=== PATIENT | female | born 1980 | race African-American/Black ===

== ENCOUNTER 2025-05-10 06:17 | Inpatient (IN) | payer OTHER ==
[2025-05-03 14:29] VITALS: BMI 26.6
[2025-05-10] MEDS: PHENAZOPYRIDINE HCL 100 MG TABLET (FP) PO ONE (06:34)
[2025-05-10] MEDS ORDERED: MIDAZOLAM HCL 2 MG/2 ML SINGLE DOSE VIAL ONE ×2 (07:37→10:21)
[2025-05-10] MEDS ORDERED: PROPOFOL 20 ML ONE ×2 (07:37→08:27)
[2025-05-10] MEDS ORDERED: ONDANSETRON 4 MG/2 ML VIAL ONE ×2 (07:40→10:00)
[2025-05-10] MEDS ORDERED: TRANEXAMIC ACID 1000 MG/10 ML VIAL ONE ×2 (07:50→10:23)
[2025-05-10] MEDS ORDERED: DEXAMETHASONE SOD PHOSPHATE 4 MG/1 ML VIAL ONE ×2 (07:53→10:24)
[2025-05-10] MEDS: ceFAZolin 2 GRAM PREMIX BAG IVPB ONE ×2 (07:56)
[2025-05-10] MEDS ORDERED: KETOROLAC TROMETHAMINE 30 MG/1 ML VIAL ONE (09:02)
[2025-05-10] MEDS ORDERED: NALOXONE HCL 0.4 MG/ML VIAL IVPUSH PRN (09:31)
[2025-05-10] MEDS ORDERED: morphine CARPU-JECT 2 MG/1 ML DISP.SYRIN IVPUSH PRN (09:31)
[2025-05-10] MEDS ORDERED: ONDANSETRON 4 MG/2 ML VIAL IVPUSH PRN (09:31)
[2025-05-10] MEDS ORDERED: BISACODYL 5 MG TABLET.DR (FP) PO PRN (09:35)
[2025-05-10] MEDS: ACETAMINOPHEN INJECTION 100 ML ONE (09:45)
[2025-05-10] MEDS: ACETAMINOPHEN 1000 MG/100 ML BAG IVPB ONE (09:45)
[2025-05-10] MEDS: DOCUSATE SODIUM 100 MG CAPSULE (FP) PO SCH (09:49)
[2025-05-10] MEDS: IBUPROFEN 800 MG/8 ML IJ IVPB SCH (12:51)
[2025-05-10] MEDS: CEFAZOLIN 1 GM/D5W 1 GM/50 ML BAG IVPB SCH (16:32)
[2025-05-10] MEDS: ACETAMINOPHEN 325 MG TABLET (FP) PO SCH (16:32)
[2025-05-10] MEDS: ONDANSETRON 4 MG/2 ML VIAL IVPUSH PRN (17:07)
[2025-05-10 18:27] LABS: MCHC 31.0 g/dl (32.2-35.5); MEAN CELL VOLUME 90.7 fl (79.4-94.8); MEAN PLT VOLUME 11.3 fl (9.4-12.3); RDW 13.6 % (12.2-17.1)
[2025-05-10 19:13] LABS: CO2 26.0 mmol/L (21-32); GLUCOSE,RANDOM 125.0 mg/dL (74-106)
[2025-05-10 19:16] LABS: CREATININE 0.8 mg/dL (0.55-1.3)
[2025-05-10] MEDS: SIMETHICONE 80 MG TAB.CHEW (FP) PO PRN (21:58)
[2025-05-11] MEDS: CEFAZOLIN 1 GM in DEXTROSE 5%-WATER - 50 ML IVPB SCH (02:45)
[2025-05-11] MEDS: morphine SULFATE/PF 1 MG/2 ML (2cc Syringe - QUVA) IT ONE (02:45)
[2025-05-11] MEDS: CEFAZOLIN 2 GM/D5W 2 GM/50 ML ML IVPB ONE (02:46)
[2025-05-11] MEDS: LACTATED RINGERS SOLUTION 1,000 ML IV SCH (02:46)
[2025-05-11] MEDS: TRANEXAMIC ACID 1000 MG/10 ML VIAL IVPUSH ONE (02:46)
[2025-05-11 07:38] LABS: MCHC 31.2 g/dl (32.2-35.5); MEAN CELL VOLUME 90.0 fl (79.4-94.8); MEAN PLT VOLUME 11.9 fl (9.4-12.3); RDW 13.9 % (12.2-17.1)
[2025-05-11 08:11] LABS: CO2 26.0 mmol/L (21-32); GLUCOSE,RANDOM 100.0 mg/dL (74-106)
[2025-05-11 08:15] LABS: CREATININE 0.6 mg/dL (0.55-1.3)
[2025-05-11] MEDS: ENOXAPARIN NA (PORCINE) 40 MG/0.4 ML DISP.SYRIN SQ SCH (10:01)
[2025-05-12 07:58] VITALS: BP 130/83; PULSE 81; RESP 17; TEMP 98.9
== END 2025-05-12 13:15 | disposition home or self-care (01) | DRG 519 ==
LOC: J2C 06:17 → J3W 11:24
PROVIDERS: ADMIT Obstetrics & Gynecology; ATTEND Obstetrics & Gynecology
PROC: 0UT00ZZ Resection of Right Ovary, Open Approach (ICD-10-PCS; 2025-05-10)
PROC: 0UT70ZZ Resection of Bilateral Fallopian Tubes, Open Approach (ICD-10-PCS; 2025-05-10)
PROC: 0UT90ZZ Resection of Uterus, Open Approach (ICD-10-PCS; principal; 2025-05-10 07:30)
DX: D25.9 Leiomyoma of uterus, unspecified (principal); N83.291 Other ovarian cyst, right side
CPT/HCPCS: 36415; 80048; 85027; 86850; 86900; 86901; 88305-TC; 88307-TC; 94010; 94760